=== PATIENT | female | born 1990 | race Asian ===

== ENCOUNTER → 2017-02-03 | Day surgery (SDC) | payer OTHER | END | disposition home or self-care (01) | LOC: JRADIR 10:03 | PROVIDERS: ATTEND Obstetrics & Gynecology | PROC: BU18YZZ Fluoroscopy of Uterus and Fallopian Tubes using Other Contrast (ICD-10-PCS; principal; 2017-02-03) | DX: N97.9 Female infertility, unspecified (principal) | CPT/HCPCS: 36415; 58340; 74740-TC; 76000-TC; 84702; Q9967 ==

== ENCOUNTER 2018-11-08 17:34 | Emergency (ER) | payer BC, OTHER ==
[2018-11-08 17:44] VITALS: TEMP 98.6; BMI 22.8
[2018-11-08] MEDS ORDERED: SODIUM CHLORIDE 1,000 ML IV STA (17:47)
[2018-11-08] MEDS ORDERED: morphine CARPU-JECT 4 MG/1 ML DISP.SYRIN IVPUSH ONE (17:47)
[2018-11-08] MEDS ORDERED: KETOROLAC TROMETHAMINE 15 MG/ML VIAL IVPUSH ONE (18:21)
[2018-11-08] MEDS ORDERED: KETOROLAC TROMETHAMINE 15 MG/ML VIAL ONE (18:40)
--- NOTE | 2018-11-08 18:42 | PDOC ---
History of Present Illness - General Chief Complaint: Pain Stated Complaint: RLQ PAIN TO BACK SOME NAUSEA Time Seen by Provider: 11/08/18 17:41 History Source: Patient Exam Limitations: No Limitations - History of Present Illness Initial Comments: 11/08/18 18:37 Patient is a 27F with history of appendectomy here today complaining of right sided pelvic pain that radiates to her lower right back. Patient endorses pain with sexual intercourse. Denies fevers, chills, nausea, vomiting. Pain stated this morning. Denies dysuria. LMP 5.5 weeks ago, trying to get . LBM today. Denies vaginal discharge, history of stds. Past History - Past Medical History Allergies/Adverse Reactions: Allergies Allergy/AdvReac Type Severity Reaction Status Date / Time pollen extracts Allergy Intermediate Cough Verified 11/08/18 17:36 Home Medications: Ambulatory Orders NK [No Known Home Medication] 11/08/18 COPD: No Other medical history: DENIES - Suicide/Smoking/Psychosocial Hx Smoking History: Never smoked Information on smoking cessation initiated: No Hx Alcohol Use: No Drug/Substance Use Hx: No Review of Systems - Review of Systems Able to Perform ROS?: Yes Comments:: 11/08/18 18:38 GENERAL/CONSTITUTIONAL: No fever or chills. No weakness. HEAD, EYES, EARS, NOSE AND THROAT: No change in vision. No sore throat. CARDIOVASCULAR: No chest pain or shortness of breath RESPIRATORY: No cough, wheezing, or hemoptysis. GASTROINTESTINAL: No nausea, vomiting, diarrhea or constipation. GENITOURINARY: No dysuria, frequency, or change in urination. MUSCULOSKELETAL: No joint or muscle swelling or pain. No neck or back pain. SKIN: No rash NEUROLOGIC: No headache, vertigo, loss of consciousness, or change in strength/ sensation. HEMATOLOGIC/LYMPHATIC: No anemia, easy bleeding, or history of blood clots. ALLERGIC/IMMUNOLOGIC: No hives or skin allergy. *Physical Exam - Vital Signs Last Vital Signs Temp Pulse Resp BP Pulse Ox 98.6 F 100 H 16 127/80 100 11/08/18 17:34 11/08/18 17:34 11/08/18 17:34 11/08/18 17:34 11/08/18 17:34 - Physical Exam Comments: 11/08/18 18:39 GENERAL: Awake, alert, and fully oriented, in no acute distress PELVIC: No cmt, no adnexal masses or tenderness, no discharge, closed cervix. HEAD: No signs of trauma, normocephalic, atraumatic EYES: PERRLA, EOMI, sclera anicteric, conjunctiva clear ENT: Auricles normal inspection, hearing grossly normal, nares patent, oropharynx clear without exudates. Moist mucosa NECK: Normal ROM, supple, no lymphadenopathy, JVD, or masses LUNGS: No distress, speaks full sentences, clear to auscultation bilaterally HEART: Regular rate and rhythm, normal S1 and S2, no murmurs, rubs or gallops, peripheral pulses normal and equal bilaterally. ABDOMEN: Soft, +RLQ pain, no CVA, +suprapubic EXTREMITIES: Normal inspection, Normal range of motion, no edema. No clubbing or cyanosis. NEUROLOGICAL: Cranial nerves II through XII grossly intact. Normal speech, normal gait, no focal sensorimotor deficits SKIN: Warm, Dry, normal turgor, no rashes or lesions noted. ED Treatment Course - LABORATORY CBC & Chemistry Diagram: 11/08/18 18:39 11/08/18 18:39 - ADDITIONAL ORDERS Additional order review: Laboratory Results 11/08/18 11/08/18 18:03 18:03 Urine Color Yellow Urine Appearance Slightly Urine pH 5.0 Urine Protein Negative Urine Glucose (UA) Negative Urine Ketones 3+ H Urine Blood Trace-intact Urine Nitrite Negative Urine Bilirubin 1+ H Urine Urobilinogen 0.2 Ur Leukocyte Esterase Negative Urine HCG, Qual Negative - RADIOLOGY Radiology Studies Ordered: Category Date Time Status TRANSVAGINAL ULTRASOUND US [US] Stat Ultrasound 11/08/18 17:48 Taken - Medications Given in the ED: ED Medications Discontinued Medications Generic Name Dose Route Start Last Admin Trade Name Freq PRN Reason Stop Dose Admin Morphine Sulfate 4 mg 11/08/18 17:47 11/08/18 18:27 Morphine Injection - IVPUSH 11/08/18 17:48 Not Given ONCE ONE Medical Decision Making - Medical Decision Making 11/08/18 18:40 Patient is 27F with history of appendectomy here today with RLQ and suprapubic pain. Vitals normal and stable. DDx includes, but is not limited to: uti, iup, ectopic, ovarian cyst. Will evaluate with basic labs, ua, upreg, tvus. Preg neg. UA shows ketones, patient has been fasting for past two days for Ramadan. CBC, CMP, US, pending. 11/08/18 18:50 TVUS shows complex cyst. Given copy of report, instructed to follow up with OBGYN. Pain improved on reassessment. CBC normal. Will discharge home. Has OBGYN that follows her already. *DC/Admit/Observation/Transfer Diagnosis at time of Disposition: Complex cyst of right ovary - Discharge Dispostion Disposition: HOME Condition at time of disposition: Good Decision to Admit order: No - Referrals - Patient Instructions Printed Discharge Instructions: DI for Ovarian Cyst Additional Instructions: Please follow up with your OBGYN physician this week. Please return if you have any new, worsening or increasing symptoms, especially increasing pain, fever and vomiting. - Post Discharge Activity
[2018-11-08 18:43] LABS: EPITHELIAL CELLS FEW /hpf
[2018-11-08 18:47] LABS: BASO % 1.2 % (0-2.0); EOS % 2.5 % (0-4.5); HEMATOCRIT 38.8 % (32.4-45.2); HEMOGLOBIN 12.7 GM/dl (10.7-15.3); LYMPH % 39.7 % (8-40); MCH 27.1 pg (25.7-33.7); MCHC 32.8 g/dl (32.0-36.0); MEAN CELL VOLUME 82.6 fl (80-96); MEAN PLT VOLUME 7.8 fl (7.5-11.1); MONO % 6.6 % (3.8-10.2); PLATELET COUNT 303 K/MM3 (134-434); RDW 13.8 % (11.6-15.6); WHITE BLOOD COUNT 8.9 K/mm3 (4.0-10.8)
[2018-11-08 18:59] LABS: ALBUMIN 4.5 g/dl (3.4-5.0); BILIRUBIN,TOTAL 0.9 mg/dl (0.2-1); CALCIUM 9.3 mg/dl (8.5-10); CREATININE 0.8 mg/dl (0.55-1.3); POTASSIUM 3.7 mmol/L (3.5-5.1); TOT PROT 7.5 g/dl (6.4-8.2)
[2018-11-08 19:06] VITALS: BP 110/77; PULSE 74
== END 2018-11-08 19:04 | disposition home or self-care (01) ==
LOC: FER 17:34
PROC: 3E0333Z Introduction of Anti-inflammatory into Peripheral Vein, Percutaneous Approach (ICD-10-PCS; principal; 2018-11-08)
PROC: 3E0337Z Introduction of Electrolytic and Water Balance Substance into Peripheral Vein, Percutaneous Approach (ICD-10-PCS; 2018-11-08)
DX: N83.291 Other ovarian cyst, right side (principal)
CPT/HCPCS: 36415; 76830-TC; 80053; 81003; 81015; 83690; 84703; 85025; 99284-25; J7030

== ENCOUNTER 2020-12-04 10:25 | Emergency (ER) | payer BC, OTHER ==
[2020-12-04] MEDS ORDERED: FAMOTIDINE 20 MG/50 ML IVPB 20 MG/50 ML MG IVPB ONE ×2 (10:36→10:40)
[2020-12-04] MEDS ORDERED: ACETAMINOPHEN 1000 MG/100 ML VIAL (NON FORMULARY) IVPB ONE (10:40)
[2020-12-04 10:48] VITALS: TEMP 97.8; BMI 25.4
[2020-12-04] MEDS ORDERED: ACETAMINOPHEN INJECTION 100 ML IVPB ONE (10:56)
[2020-12-04 10:59] LABS: BASO % 4.2 % (0-2.0); HEMATOCRIT 38.5 % (32.4-45.2); HEMOGLOBIN 12.8 GM/dl (10.7-15.3); LYMPH % 11.5 % (8-40); MCH 26.4 pg (25.7-33.7); MCHC 33.2 g/dl (32.0-36.0); MEAN CELL VOLUME 79.8 fl (80-96); MEAN PLT VOLUME 7.7 fl (7.5-11.1); MONO % 3.3 % (3.8-10.2); PLATELET COUNT 373 K/MM3 (134-434); RBC 4.83 M/mm3 (3.60-5.2); RDW 12.2 % (11.6-15.6); WHITE BLOOD COUNT 13.6 K/mm3 (4.0-10.8)
[2020-12-04 11:13] LABS: ALBUMIN 3.5 g/dl (3.4-5.0); BILIRUBIN,TOTAL 0.6 mg/dl (0.2-1); CALCIUM 8.7 mg/dl (8.5-10); CREATININE 0.7 mg/dl (0.55-1.3); TOT PROT 6.9 g/dl (6.4-8.2)
[2020-12-04] MEDS ORDERED: predniSONE 20 MG TABLET (UD) PO ONE ×2 (12:56→12:58)
[2020-12-04] MEDS ORDERED: predniSONE 20 MG TABLET (UD) ONE (13:00)
[2020-12-04 13:34] VITALS: BP 120/84; PULSE 89
== END 2020-12-04 14:59 | disposition home or self-care (01) ==
LOC: FER 10:25
PROC: 3E033NZ Introduction of Analgesics, Hypnotics, Sedatives into Peripheral Vein, Percutaneous Approach (ICD-10-PCS; principal; 2020-12-04)
PROC: 3E033GC Introduction of Other Therapeutic Substance into Peripheral Vein, Percutaneous Approach (ICD-10-PCS; 2020-12-04)
DX: K14.8 Other diseases of tongue (principal)
CPT/HCPCS: 36415; 80053; 84443; 85025; 99285-25; J0131